=== PATIENT | female | born 1985 | race Asian ===

== ENCOUNTER 2016-12-23 03:00 | Inpatient (IN) | payer SELFPAY ==
[~2016-12-23] VITALS: Ht 165.1 cm; Wt 70.3 kg
[2016-12-23] MEDS ORDERED: fentaNYL CITRATE/PF 100 MCG/2 ML AMP ONE (03:35)
[2016-12-23] MEDS ORDERED: FENT2mCg/mL-ROPIVA0.2%/NS EPID 150 ML EP ONE (03:36)
[2016-12-23] MEDS ORDERED: LR 1,000 ML IV ONE (03:36)
[2016-12-23] MEDS ORDERED: OXYTOCIN/NORMAL SALINE 1,000 ML IV SCH ×2 (03:36→17:16)
[2016-12-23] MEDS ORDERED: LR 1,000 ML IV SCH (03:36)
[2016-12-23] MEDS ORDERED: LR 500 ML IV ONE (03:36)
[2016-12-23] MEDS ORDERED: NALBUPHINE HCL 10 MG/ML AMP IM PRN (03:45)
[2016-12-23] MEDS ORDERED: TERBUTALINE SULFATE 1 MG/ML VIAL SUBCUT ONE (03:45)
[2016-12-23] MEDS ORDERED: NALBUPHINE HCL 10 MG/ML AMP IVP PRN (03:45)
[2016-12-23] MEDS ORDERED: NALBUPHINE HCL 10 MG/ML AMP ONE (03:52)
[2016-12-23 04:24] LABS: BASOPHILS % (AUTO) 0.3 % (0.0-2.0); EOSINOPHILS # (AUTO) 0.1 K/uL (0.0-0.4); EOSINOPHILS % (AUTO) 0.6 % (0.0-4.0); HEMOGLOBIN 12.1 g/dL (12.0-16.0); LYMPHOCYTES # (AUTO) 2.2 K/uL (1.0-5.5); LYMPHOCYTES % (AUTO) 14.5 % (20.5-51.5); MEAN CORPUSCULAR HEMOGLOBIN 29 pg (27-31); MEAN CORPUSCULAR HGB CONC 34 % (32-36); MEAN CORPUSCULAR VOLUME 86 fL (79.0-98.0); MONOCYTES # (AUTO) 0.8 K/uL (0.0-1.0); MONOCYTES % (AUTO) 5.1 % (1.7-9.3); NEUTROPHILS # (AUTO) 12.3 K/uL (1.8-7.7); NEUTROPHILS % (AUTO) 79.5 % (40.0-70.0); PLATELET COUNT (AUTO) 233 K/uL (130-430); RED CELL DISTRIBUTION WIDTH 13.1 % (9.0-15.0); WHITE BLOOD COUNT (AUTO) 15.4 K/uL (4.8-10.8)
[2016-12-23 05:19] VITALS: BP_SYST 126
[2016-12-23] MEDS ORDERED: OXYTOCIN/NORMAL SALINE 1,000 ML IV ONE ×2 (05:49→17:16)
[2016-12-23] MEDS ORDERED: ACETAMINOPHEN 500 MG TABLET PO ONE ×2 (09:15→15:45)
[2016-12-23] MEDS ORDERED: BUPIVACAINE /PF 0.25% 30 ML VIAL INJ ONE (12:00)
[2016-12-23] MEDS ORDERED: AMPICILLIN SODIUM 2 GM in NS 100 ML IV ONE (12:00)
[2016-12-23] MEDS ORDERED: AMPICILLIN SODIUM 1 GM in NS 50 ML IV SCH (14:00)
[2016-12-23] MEDS ORDERED: GENTAMICIN 120 mg/100 mL NS 100 ML IV ONE (14:45)
[2016-12-23] MEDS ORDERED: LIDOCAINE PF 1% 30ML(POUR BTL) INJ ONE (15:00)
[2016-12-23] MEDS ORDERED: METHYLERGONOVINE MALEATE 0.2 MG/ML AMP IM ONE (17:08)
[2016-12-23] MEDS ORDERED: METHYLERGONOVINE MALEATE 0.2 MG/ML AMP ONE (17:08)
[2016-12-23] MEDS ORDERED: GLYCERIN/WITCH HAZEL (TUCKS PADS) TP PRN (17:30)
[2016-12-23] MEDS ORDERED: RHO(D) IMMUNE GLOBULIN/MALTOSE 1500 UNITS/1.3 ML (WINHRO) IM PRN (17:30)
[2016-12-23] MEDS ORDERED: METHYLERGONOVINE MALEATE 0.2 MG TABLET PO PRN (17:30)
[2016-12-23] MEDS ORDERED: HYDROcodone/ACETAMIN 5-325 MG TAB (NORCO/ VICODIN) PO PRN ×2 (17:30)
[2016-12-23] MEDS ORDERED: ANUSOL 1 EA SUPP.RECT (PREPARATION H) RC PRN (17:30)
[2016-12-23] MEDS ORDERED: ACETAMINOPHEN 325 MG TABLET PO PRN (17:30)
[2016-12-23] MEDS ORDERED: MEASLES,MUMPS&RUBELLA VACC/PF 12500 UNIT/0.5 ML VIAL SUBQ PRN (17:30)
[2016-12-23] MEDS ORDERED: DERMOPLAST SPRAY TP PRN (17:30)
[2016-12-23] MEDS ORDERED: LANOLIN 7 GM OINT. TP PRN (17:30)
[2016-12-23] MEDS ORDERED: SENNOSIDES/DOCUSATE SODIUM 1 TAB TABLET(SENOKOT-S) PO PRN (17:30)
[2016-12-23] MEDS ORDERED: TEMAZEPAM 15 MG CAPSULE PO PRN (17:30)
[2016-12-23] MEDS ORDERED: HYDROCORTISONE 0.5%, 28.35 GM TOPICAL CREAM TP PRN (17:30)
[2016-12-23] MEDS ORDERED: DOCUSATE SODIUM 100 MG CAPSULE PO PRN (17:30)
[2016-12-23] MEDS: IBUPROFEN 600 MG TABLET PO SCH (18:11)
[2016-12-24] MEDS: IBUPROFEN 600 MG TABLET PO SCH ×4 (00:22→23:56)
[2016-12-24 07:18] LABS: HEMATOCRIT 31.7 % (36-48); HEMOGLOBIN 10.7 g/dL (12.0-16.0)
[2016-12-25] MEDS: IBUPROFEN 600 MG TABLET PO SCH (06:01)
== END 2016-12-25 10:17 | disposition home or self-care (01) | DRG 774 ==
LOC: OBSVTOIN 03:00 → SPU 03:00
PROVIDERS: ADMIT Obstetrics & Gynecology; ATTEND Obstetrics & Gynecology
PROC: 10D07Z6 Extraction of Products of Conception, Vacuum, Via Natural or Artificial Opening (ICD-10-PCS; principal; 2016-12-23)
PROC: 0HQ9XZZ Repair Perineum Skin, External Approach (ICD-10-PCS; 2016-12-23)
PROC: 3E0S3CZ (ICD-10-PCS; 2016-12-23)
PROC: 00HU33Z Insertion of Infusion Device into Spinal Canal, Percutaneous Approach (ICD-10-PCS; 2016-12-23)
DX: O75.2 Pyrexia during labor, not elsewhere classified (principal); O70.0 First degree perineal laceration during delivery; Z3A.39 39 weeks gestation of pregnancy; Z37.0 Single live birth
CPT/HCPCS: 36415; 85018-TC; 85025; 86592; 86886; 86900; 86901; 94760; J0290; J1580; J2001; J2210; J2300; J2590; J3010; J3490